=== PATIENT | male | born 1960 | race Caucasian/White ===

== ENCOUNTER 2020-07-11 13:55 | Emergency (ER) | payer SELFPAY ==
[~2020-07-11] VITALS: Ht 177.8 cm; Wt 87.0 kg
--- NOTE | 2020-07-11 14:41 | PHYS DOC ---
Past History Past Medical History: No Pertinent History, Arthritis Past Surgical History: No Surgical History Alcohol Use: None General Adult EDM: Chief Complaint: BACK PAIN OR INJURY HPI: HPI: 59-year-old male presents with left flank pain. Patient states that he has been having this pain for last 1 week or more. It comes and goes but has become more persistent over the last few days. Today it became severe while he was trying to climb up on a log. He slipped off the log and hit the ground. He did not hit his head. The pain in his left flank was so significant that he is stable for the past. After he woke up, he got back to his pickup truck and came to the hospital. He felt like he might pass out again from the pain while he was driving. He is not sure why this pain is so significant. He assumed it was just a lumbar back strain, but it is not getting better. Prior to falling today, he denies trauma. Denies fever or chills. Review of Systems: Review of Systems: Constitutional: Denies fever or chills Eyes: Denies change in visual acuity HENT: Denies nasal congestion or sore throat Respiratory: Denies cough or shortness of breath Cardiovascular: Denies chest pain or edema GI: Denies abdominal pain, nausea, vomiting, bloody stools or diarrhea : Denies dysuria Musculoskeletal: Left flank pain Integument: Denies rash Neurologic: Denies headache, focal weakness or sensory changes Endocrine: Denies polyuria or polydipsia Lymphatic: Denies swollen glands Psychiatric: Denies depression or anxiety Current Medications: Current Meds: Current Medications Medications (Trade) Dose Ordered Sig/[facility] Start Time Stop Time Status Last Admin Dose Admin Morphine Sulfate (Morphine 4mg Syringe) 4 mg 1X ONCE 07/11/20 14:45 07/11/20 14:46 UNV Ondansetron HCl (Zofran) 4 mg 1X ONCE 07/11/20 14:45 07/11/20 14:46 UNV Sodium Chloride 1,000 ml @ 1,000 mls/hr 1X ONCE 07/11/20 14:45 07/11/20 15:44 UNV Physical Exam: PE: Constitutional: Well developed, well nourished, mild acute distress, non-toxic appearance. [] HENT: Normocephalic, atraumatic, bilateral external ears normal, oropharynx moist, no oral exudates, nose normal. [] Eyes: PERRLA, EOMI, conjunctiva normal, no discharge. [] Neck: Normal range of motion, no tenderness, supple, no stridor. [] Cardiovascular: Heart rate regular rhythm, no murmur [] Lungs & Thorax: Bilateral breath sounds clear to auscultation [] Abdomen: Bowel sounds normal, soft, no tenderness, no masses, no pulsatile masses. [] Skin: Warm, dry, no erythema, no rash. [] Back: Left flank and low back pain even with light palpation. [] Extremities: No tenderness, no cyanosis, no clubbing, ROM intact, no edema. [] Neurologic: Alert and oriented X 3, normal motor function, normal sensory function, no focal deficits noted. [] Psychologic: Affect normal, judgement normal, mood normal. [] Current Patient Data: Vital Signs: Vital Signs Date Time Temp Pulse Resp B/P (MAP) Pulse Ox O2 Delivery O2 Flow Rate FiO2 07/11/20 14:10 98.7 50 18 119/73 (88) 95 EKG: EKG: [] Radiology/Procedures: Radiology/Procedures: [] Impressions: EXAM: Head CT without contrast. HISTORY: Fall. TECHNIQUE: Computed tomographic images of the head were obtained without c ontrast. *One or more of the following individualized dose reduction techniques were utilized for this examination: 1. Automated exposure control. 2. Adjustment of the mA and/or kV according to patient size. 3. Use of iterative reconstruction technique. COMPARISON: None. FINDINGS: There is no acute or subacute extra-axial or intraparenchymal hemorrhage. There is no mass effect or midline shift. There is no hydrocephalus. There are areas of decreased attenuation within the cerebral white matter, n onspecific and likely related to chronic small vessel disease. There is right maxillary sinus mucosal thickening and a suspected left maxillary sinus mucous retention cyst or chronic left inferior orbital fracture. The mastoid air cells are clear. There is no suspicious calvarial lesion. IMPRESSION: No acute intracranial finding. Electronically signed by: Annalisa Yanez MD (07/11/2020 3:37 PM) [facility] DICTATED AND SIGNED BY: ANNALISA YANEZ MD DATE: 07/11/20 1585 CC: NAZANIN BRANHAM DO; PCP,NO ~MTH0 0 CT ABDOMEN+PELVIS WO dated 07/11/2020 3:20 PM Indication:Reason: right flank pain / Spl. Instructions: / History: Comparison: No comparison is available. Technique: Helical noncontrast images were performed. Sagittal and coronal reconstructions were obtained. One or more of the following individualized dose reduction techniques were utilized for this examination: 1. Automated exposure control 2. Adjustment of the mA and/or kV according to patient size 3. Use of iterative reconstruction technique Findings: There is minimal dependent atelectasis. The lung bases otherwise are clear. The liver and spleen are homogeneous in density and normal in configuration. Evaluation of the solid organs is somewhat limited by lack of IV contrast. The kidneys show no apparent mass, calcification or obstruction. The adrenal glands are not enlarged. The pancreas appears normal. No retroperitoneal or mesenteric adenopathy is seen. There is no apparent abdominal mass or inflammatory process. The appendix is seen extending posteriorly and inferiorly from the cecum. Although appendiceal diameter is borderline increased at about 6 mm, there is no adjacent inflammation and there appears to be fat deposition in the wall the appendix. Images through the pelvis show no distal ureteral stone or obstruction. The bladder appears normal except for suggestion of a 1 mm calcification in the lumen toward the left side. No pelvic or inguinal adenopathy is seen. There is no apparent pelvic mass or inflammatory process. There is some diverticulosis of the colon without apparent diverticulitis. IMPRESSION: No renal or ureteral stone is seen. There may be a tiny calcification in the bladder, and a recently passed stone is a consideration. Electronically signed by: Cyndi Diaz Jr., MD (07/11/2020 3:46 PM) [id number] DICTATED AND SIGNED BY: CYNDI DIAZ Jr, MD DATE: 07/11/20 1537 CC: NAZANIN BRANHAM DO; PCP,NO ~MTH0 0 Heart Score: C/O Chest Pain: No Risk Factors: Risk Factors: DM, Current or recent (<one month) smoker, HTN, HLP, family history of CAD, obesity. Risk Scores: Score 0 - 3: 2.5% MACE over next 6 weeks - Discharge Home Score 4 - 6: 20.3% MACE over next 6 weeks - Admit for Clinical Observation Score 7 - 10: 72.7% MACE over next 6 weeks - Early Invasive Strategies Course & Med Decision Making: Course & Med Decision Making Pertinent Labs and Imaging studies reviewed. (See chart for details) The patient's head CT is negative for acute findings. His CT of the abdomen and pelvis is unremarkable except for the possibility that he passed a stone into the bladder. The patient's urinalysis is negative for infection. The patient is still pretty uncomfortable so I am thinking it is more musculoskeletal at this time. I have given the patient 4 mg of morphine when he arrived and I will give an additional for now as well as 5 mg of Valium for muscle spasm. I will discharge the patient with prednisone, Flexeril and Butternut for his discomfort. [] Dragon Disclaimer: Dragon Disclaimer: This electronic medical record was generated, in whole or in part, using a voice recognition dictation system. Departure Departure: Impression: Primary Impression: Lumbar back sprain Qualified Codes: S33.5XXA - Sprain of ligaments of lumbar spine, initial encounter Disposition: HOME / SELF CARE / HOMELESS Condition: STABLE Referrals: PCP,NO (PCP) Patient Instructions: Low Back Strain with Rehab-[facility] Scripts Prednisone (PREDNISONE) 10 Mg Tablet 50 MG PO DAILY for back pain for 3 Days, #15 TAB Prov: NAZANIN BRANHAM DO 07/11/20 Cyclobenzaprine Hcl (CYCLOBENZAPRINE HCL) 10 Mg Tablet 1 TAB PO TID PRN for MUSCLE SPASMS, #30 TAB Prov: NAZANIN BRANHAM DO 07/11/20 Hydrocodone/Acetaminophen (Hydrocodone-Acetamin 5-325 mg) 1 Each Tablet 1 EACH PO Q4-6HRS PRN for PAIN, #14 TAB Prov: NAZANIN BRANHAM DO 07/11/20 NAZANIN BRANHAM DO July 11, 2020 14:41
[2020-07-11] MEDS ORDERED: IV NORMAL SALINE 1,000ML 1,000 ML IV ONE (14:45)
[2020-07-11] MEDS ORDERED: ONDANSETRON PF 4 MG/2 ML VIAL. IVP ONE (14:45)
[2020-07-11] MEDS ORDERED: MORPHINE SULFATE 4 MG/ML DISP.SYRIN. IV ONE ×2 (14:45→16:00)
[2020-07-11 15:15] LABS: BASO % 0 % (0-3); EOS # 0.1 x10^3/uL (0.0-0.7); EOS % 2 % (0-3); HEMATOCRIT 44.2 % (39.0-53.0); LYMPH # 2.6 x10^3/uL (1.0-4.8); LYMPH % 40 % (24-48); MEAN CORPUSCULAR HEMOGLOBIN 33 pg (25-35); MEAN CORPUSCULAR HGB CONC 34 g/dL (31-37); MEAN CORPUSCULAR VOLUME 98 fL (79-100); MONO # 0.4 x10^3/uL (0.0-1.1); MONO % 7 % (0-9); NEUT # 3.2 x10^3uL (1.8-7.7); NEUT % 50 % (31-73); PLATELET COUNT 194 x10^3/uL (140-400); RED CELL DISTRIBUTION WIDTH 13.2 % (11.5-14.5); WHITE BLOOD COUNT 6.4 x10^3/uL (4.0-11.0)
[2020-07-11 15:28] LABS: CALCIUM 8.9 mg/dL (8.5-10.1)
[2020-07-11 15:35] LABS: ALBUMIN 3.8 g/dL (3.4-5.0); ALBUMIN/GLOBULIN RATIO 0.9 (1.0-1.7); TOTAL BILIRUBIN 0.4 mg/dL (0.2-1.0); TOTAL PROTEIN 8.2 g/dL (6.4-8.2)
--- NOTE | 2020-07-11 15:40 | RAD ---
EXAM: Head CT without contrast. HISTORY: Fall. TECHNIQUE: Computed tomographic images of the head were obtained without contrast. *One or more of the following individualized dose reduction techniques were utilized for this examina tion: 1. Automated exposure control. 2. Adjustment of the mA and/or kV according to patient size. 3. Use of iterative reconstruction technique. COMPARISON: None. FINDINGS: There is no acute or subacute extra-axial or intraparenchymal hemorrhage. There is no mass effect or midline shift. There is no hydrocephalus. There are areas of decreased attenuation within the cerebral white matter, nonspecific and likely rel ated to chronic small vessel disease. There is right maxillary sinus mucosal thickening and a suspected left maxillary sinus mucous retenti on cyst or chronic left inferior orbital fracture. The mastoid air cells are clear. There is no suspi cious calvarial lesion. IMPRESSION: No acute intracranial finding. Electronically signed by: Annalisa Lane MD (07/11/2020 3:37 PM) [facility]
--- NOTE | 2020-07-11 15:48 | RAD ---
CT ABDOMEN+PELVIS WO dated 07/11/2020 3:20 PM Indication:Reason: right flank pain / Spl. Instructions: / History: Comparison: No comparison is available. Technique: Helical noncontrast images were performed. Sagittal and coronal reconstructions were obtai guillermo. One or more of the following individualized dose reduction techniques were utilized for this examinat ion: 1. Automated exposure control 2. Adjustment of the mA and/or kV according to patient size 3. Use of iterative reconstruction technique Findings: There is minimal dependent atelectasis. The lung bases otherwise are clear. The liver and spleen are homogeneous in density and normal in configuration. Evaluation of the solid organs is somewhat limite d by lack of IV contrast. The kidneys show no apparent mass, calcification or obstruction. The adrena l glands are not enlarged. The pancreas appears normal. No retroperitoneal or mesenteric adenopathy i s seen. There is no apparent abdominal mass or inflammatory process. The appendix is seen extending p osteriorly and inferiorly from the cecum. Although appendiceal diameter is borderline increased at ab out 6 mm, there is no adjacent inflammation and there appears to be fat deposition in the wall the ap pendix. Images through the pelvis show no distal ureteral stone or obstruction. The bladder appears normal ex cept for suggestion of a 1 mm calcification in the lumen toward the left side. No pelvic or inguinal adenopathy is seen. There is no apparent pelvic mass or inflammatory process. There is some diverticu losis of the colon without apparent diverticulitis. IMPRESSION: No renal or ureteral stone is seen. There may be a tiny calcification in the bladder, and a recently passed stone is a consideration. Electronically signed by: Cheikh Diaz Jr., MD (07/11/2020 3:46 PM) [id number]
[2020-07-11] MEDS ORDERED: diazePAM 5 MG TABLET. PO ONE (16:00)
[2020-07-11] MEDS ORDERED: HYDR-2759 PO (16:05)
[2020-07-11] MEDS ORDERED: PRED-220 PO (16:05)
[2020-07-11] MEDS ORDERED: CYCL-331 PO (16:05)
[2020-07-11] MEDS ORDERED: methylPREDNISolone SOD SUCC PF 125 MG/2 ML VIAL. IV ONE (16:15)
[2020-07-11 16:47] LABS: BILIRUBIN,URINE NEG (NEG); CLARITY,URINE CLEAR; COLOR,URINE YELLOW; GLUCOSE,URINE NEG (NEG)
[2020-07-11 16:48] LABS: BACTERIA,URINE 0 /HPF (0-FEW); NITRITE,URINE NEG (NEG); RBC,URINE 0 /HPF (0-2); SQUAMOUS EPITHELIAL CELL,UR OCC /LPF; WBC,URINE 0 /HPF (0-4)
[2020-07-11 17:45] VITALS: BP 132/78
[2020-07-11] MEDS ORDERED: KETOROLAC 30 MG/ML VIAL. IVP ONE (17:45)
== END 2020-07-11 17:50 | disposition home or self-care (01) ==
LOC: ER 13:55
DX: S33.5XXA Sprain of ligaments of lumbar spine, initial encounter (principal); X58.XXXA Exposure to other specified factors, initial encounter; Y93.89 Activity, other specified; Y92.89 Other specified places as the place of occurrence of the external cause; Y99.8 Other external cause status
CPT/HCPCS: 36415; 70450; 74176; 80053; 81001; 85025; 96361; 96374; 96375; 96376; 99285; J1885; J2270; J2405; J2930; J7030